=== PATIENT | female | born 1980 | race Two or more races ===

== ENCOUNTER 2018-08-10 17:24 | Emergency (ER) | payer SELFPAY ==
[~2018-08-10] VITALS: Ht 175.3 cm; Wt 103.0 kg
[2018-08-10 18:19] VITALS: BP 116/74
[2018-08-10] MEDS ORDERED: methylPREDNISolone SOD SUCC PF 125 MG/2 ML VIAL. IV ONE (18:30)
[2018-08-10 18:46] LABS: BASO # 0.1 x10^3/uL (0.0-0.2); BASO % 1 % (0-3); EOS # 0.1 x10^3/uL (0.0-0.7); EOS % 2 % (0-3); HEMATOCRIT 40.7 % (36.0-47.0); HEMOGLOBIN 13.8 g/dL (12.0-15.5); LYMPH # 3.2 x10^3/uL (1.0-4.8); LYMPH % 35 % (24-48); MEAN CORPUSCULAR HEMOGLOBIN 29 pg (25-35); MEAN CORPUSCULAR HGB CONC 34 g/dL (31-37); MEAN CORPUSCULAR VOLUME 85 fL (79-100); MONO # 0.5 x10^3/uL (0.0-1.1); MONO % 6 % (0-9); NEUT # 5.2 x10^3uL (1.8-7.7); NEUT % 57 % (31-73); PLATELET COUNT 260 x10^3/uL (140-400); RED CELL DISTRIBUTION WIDTH 13.1 % (11.5-14.5); WHITE BLOOD COUNT 9.1 x10^3/uL (4.0-11.0)
[2018-08-10 18:54] LABS: CALCIUM 8.9 mg/dL (8.5-10.1); CREATININE 0.7 mg/dL (0.6-1.0); GFR 95.2; POTASSIUM 4.1 mmol/L (3.5-5.1)
[2018-08-10] MEDS ORDERED: IOHEXOL 300 MG/ML 100ML VIAL. ONE (19:01)
[2018-08-10] MEDS ORDERED: CONTRAST GIVEN. MC PRN (19:15)
[2018-08-10] MEDS ORDERED: IOHEXOL 300 MG/ML 100ML VIAL. IV ONE (19:30)
--- NOTE | 2018-08-10 20:03 | RAD ---
PQRS Compliance statement: One or more of the following individualized dose reduction techniques were utilized for this examination: 1. Automated exposure control. 2. Adjustment of the mA and/or kV according to patient size. 3. Use of iterative reconstruction technique. Indication:sore throat; Omni 300, 70ml TECHNIQUE: CT of the neck soft tissue with IV contrast with multiplanar reformats. COMPARISON:None FINDINGS: Visualized sections through the brain are within normal limits. The nasopharynx, hypopharynx within normal limits. Asymmetric prominence of the right palatine tonsil. No tonsillar or peritonsillar fluid collection. Retropharyngeal soft tissue demonstrates no edema. Epiglottis is not thickened. The major neck vasculature is patent. No enlarged deep cervical adenopathy. The submandibular glands, parotid glands and thyroid within normal limits. Visualized superior mediastinum within normal limits. Clear lung apices. The visualized paranasal sinuses and mastoid air cells are clear. No suspicious bony lesion. IMPRESSION: Mild is symmetric enlargement of the right palatine tonsil may represent tonsillitis. No tonsillar or peritonsillar abscess. Electronically signed by: Julius Dunn DO (08/10/2018 8:01 PM) [facility]
[2018-08-10] MEDS ORDERED: CLIN150C14 PO (20:11)
[2018-08-10] MEDS ORDERED: PRED50TA PO (20:11)
--- NOTE | 2018-08-10 20:11 | PHYS DOC ---
Past Medical History Past Medical History: Diabetes-Type II Past Surgical History: Cholecystectomy, Other Additional Past Surgical Histo: RIGHT KNEE Alcohol Use: None Drug Use: None Adult General Chief Complaint Chief Complaint: SORE THROAT HPI HPI Patient is a 37 year old female who presents with sore throat. Patient states she was treated for strep infection with ampicillin injection on Tuesday. She states she has continued to have a sore throat and feels there is something stuck in her right throat. Patient denies any difficulty swallowing or breathing. Review of Systems Review of Systems Constitutional: Denies fever or chills [] Eyes: Denies change in visual acuity, redness, or eye pain [] HENT: Reports sore throat. Denies nasal congestion Respiratory: Denies cough or shortness of breath [] Cardiovascular: No additional information not addressed in HPI [] GI: Denies abdominal pain, nausea, vomiting, bloody stools or diarrhea [] : Denies dysuria or hematuria [] Musculoskeletal: Denies back pain or joint pain [] Integument: Denies rash or skin lesions [] Neurologic: Denies headache, focal weakness or sensory changes [] All other systems were reviewed and found to be within normal limits, except as documented in this note. Current Medications Current Medications Current Medications Medications (Trade) Dose Ordered Sig/Raúl Start Time Stop Time Status Last Admin Dose Admin Info (CONTRAST GIVEN -- Rx MONITORING) 1 each PRN DAILY PRN 08/10/18 19:15 08/12/18 19:14 Iohexol (Omnipaque 300 Mg/ml) 100 ml STK-MED ONCE 08/10/18 19:01 08/10/18 19:02 DC Methylprednisolone Sodium Succinate (SOLU-Medrol 125MG VIAL) 125 mg 1X ONCE 08/10/18 18:30 08/10/18 18:31 DC 08/10/18 18:43 125 MG Allergies Allergies Allergies Coded Allergies Type Severity Reaction Last Updated Verified No Known Drug Allergies 08/10/18 No Physical Exam Physical Exam Constitutional: Well developed, well nourished, no acute distress, non-toxic appearance. [] HENT: Normocephalic, atraumatic, bilateral external ears normal, oropharynx moist, no oral exudates, nose normal. [] Airway is open, no erythema to posterior fornix. +1 right anterior cervical adenopathy Eyes: PERRLA, EOMI, conjunctiva normal, no discharge. [] Neck: Normal range of motion, no tenderness, supple, no stridor. [] Cardiovascular:Heart rate regular rhythm, no murmur [] Lungs & Thorax: Bilateral breath sounds clear to auscultation [] Abdomen: Bowel sounds normal, soft, no tenderness, no masses, no pulsatile masses. [] Skin: Warm, dry, no erythema, no rash. [] Back: No tenderness, no CVA tenderness. [] Extremities: No tenderness, no cyanosis, no clubbing, ROM intact, no edema. [] Neurologic: Alert and oriented X 3, normal motor function, normal sensory function, no focal deficits noted. [] Psychologic: Affect normal, judgement normal, mood normal. [] Current Patient Data Vital Signs Vital Signs Date Time Temp Pulse Resp B/P (MAP) Pulse Ox O2 Delivery O2 Flow Rate FiO2 08/10/18 18:19 97.8 61 18 116/74 (88) 95 Room Air 97.8 Lab Values Laboratory Tests Test 08/10/18 18:30 White Blood Count 9.1 x10^3/uL (4.0-11.0) Red Blood Count 4.80 x10^6/uL (3.50-5.40) Hemoglobin 13.8 g/dL (12.0-15.5) Hematocrit 40.7 % (36.0-47.0) Mean Corpuscular Volume 85 fL (79-100) Mean Corpuscular Hemoglobin 29 pg (25-35) Mean Corpuscular Hemoglobin Concent 34 g/dL (31-37) Red Cell Distribution Width 13.1 % (11.5-14.5) Platelet Count 260 x10^3/uL (140-400) Neutrophils (%) (Auto) 57 % (31-73) Lymphocytes (%) (Auto) 35 % (24-48) Monocytes (%) (Auto) 6 % (0-9) Eosinophils (%) (Auto) 2 % (0-3) Basophils (%) (Auto) 1 % (0-3) Neutrophils # (Auto) 5.2 x10^3uL (1.8-7.7) Lymphocytes # (Auto) 3.2 x10^3/uL (1.0-4.8) Monocytes # (Auto) 0.5 x10^3/uL (0.0-1.1) Eosinophils # (Auto) 0.1 x10^3/uL (0.0-0.7) Basophils # (Auto) 0.1 x10^3/uL (0.0-0.2) Sodium Level 138 mmol/L (136-145) Potassium Level 4.1 mmol/L (3.5-5.1) Chloride Level 100 mmol/L (98-107) Carbon Dioxide Level 27 mmol/L (21-32) Anion Gap 11 (6-14) Blood Urea Nitrogen 13 mg/dL (7-20) Creatinine 0.7 mg/dL (0.6-1.0) Estimated GFR (Cockcroft-Gault) 95.2 Glucose Level 175 mg/dL (70-99) H Calcium Level 8.9 mg/dL (8.5-10.1) Laboratory Tests 08/10/18 18:30 Laboratory Tests 08/10/18 18:30 EKG EKG [] Radiology/Procedures Radiology/Procedures []PROCEDURE: CT SOFT TISSUE NECK W/CONTRAST PQRS Compliance statement: One or more of the following individualized dose reduction techniques were utilized for this examination: 1. Automated exposure control. 2. Adjustment of the mA and/or kV according to patient size. 3. Use of iterative reconstruction technique. Indication:sore throat; Omni 300, 70ml TECHNIQUE: CT of the neck soft tissue with IV contrast with multiplanar reformats. COMPARISON:None FINDINGS: Visualized sections through the brain are within normal limits. The nasopharynx, hypopharynx within normal limits. Asymmetric prominence of the right palatine tonsil. No tonsillar or peritonsillar fluid collection. Retropharyngeal soft tissue demonstrates no edema. Epiglottis is not thickened. The major neck vasculature is patent. No enlarged deep cervical adenopathy. The submandibular glands, parotid glands and thyroid within normal limits. Visualized superior mediastinum within normal limits. Clear lung apices. The visualized paranasal sinuses and mastoid air cells are clear. No suspicious bony lesion. IMPRESSION: Mild is symmetric enlargement of the right palatine tonsil may represent tonsillitis. No tonsillar or peritonsillar abscess. Electronically signed by: Julius Maxwell DO (08/10/2018 8:01 PM) [facility] DICTATED and SIGNED BY: JULIUS MAXWELL DO DATE: 08/10/181957 Course & Med Decision Making Course & Med Decision Making Pertinent Labs and Imaging studies reviewed. (See chart for details) This is a 37-year-old. Patient presented to the ED today with sore throat and a sensation of something stuck in her throat area and she was treated for strep infection with ampicillin injection 4 days ago. She states now she feels something is stuck on the right side of the throat. She is afebrile. Airway is open CBC with a normal WBC, CMP with no acute findings. CT of the neck soft tissue was noted for tonsillitis, no abscess. Patient was put on clindamycin. Also given prescription of prednisone. Tylenol Motrin for pain or fever. Saltwater gargles recommended area and provided ENT for follow- up. Dragon Disclaimer Dragon Disclaimer This electronic medical record was generated, in whole or in part, using a voice recognition dictation system. Departure Departure Impression: Primary Impression: Acute tonsillitis Disposition: HOME, SELF-CARE Condition: STABLE Referrals: UNKNOWN PCP NAME (PCP) please follow up with your doctor next week LYDIA ROQUE MD follow up next week Patient Instructions: Tonsillitis, [id number] Additional Instructions: You were evaluated in the emergency room and noted for have tonsillitis. We put you on prednisone for 5 days and clindamycin. Take them as prescribed. Take Tylenol or Motrin for pain or fever. Use saltwater gargles as needed. Follow-up with your doctor or ENT next week. Scripts Clindamycin Hcl (CLINDAMYCIN HCL) 150 Mg Capsule 3 CAP PO TID, #90 CAP Prov: LISA SILVEIRA APRN 08/10/18 Prednisone (PREDNISONE) 50 Mg Tablet 1 TAB PO DAILY, #5 TAB Prov: LISA SILVEIRA APRN 08/10/18 Problem Qualifiers Primary Impression: Acute tonsillitis Pharyngitis/tonsillitis etiology: unspecified etiology Qualified Codes: J03.90 - Acute tonsillitis, unspecified LISA SILVEIRA APRN Aug 10, 2018 20:11
== END 2018-08-10 20:23 | disposition home or self-care (01) ==
LOC: ER 17:24
DX: J03.90 Acute tonsillitis, unspecified (principal); E11.9 Type 2 diabetes mellitus without complications; Z90.49 Acquired absence of other specified parts of digestive tract
CPT/HCPCS: 36415; 70491; 80048; 85025; 96374; 99284; J2930; Q9967